=== PATIENT | female | born 1990 | race African-American/Black ===

== ENCOUNTER 2023-09-21 02:48 | Emergency (ER) | payer OTHER, MEDICAID ==
[2023-09-21] MEDS ORDERED: HYDROcodone/Acetaminophen 5/325 mg Tablet ONE (06:29)
== END 2023-09-21 06:39 | disposition home or self-care (01) ==
LOC: CSHERS 02:48
DX: O03.4 Incomplete spontaneous abortion without complication (principal); I10 Essential (primary) hypertension; F17.210 Nicotine dependence, cigarettes, uncomplicated
CPT/HCPCS: 76856